=== PATIENT | female | born 1985 | race American Indian/Alaskan Native ===

== ENCOUNTER 2020-06-21 01:24 | Emergency (ER) | payer MEDICAID, SELFPAY ==
[2020-06-21] MEDS ORDERED: cloNIDine 0.1 MG Tab PO ONE (01:42)
--- NOTE | 2020-06-21 01:53 | EDM.PDOC ---
ED HPI GENERAL MEDICAL PROBLEM - General Chief Complaint: General Stated Complaint: MEDICAL VIA [facility] Time Seen by Provider: 06/21/20 01:51 Source of Information: Reports: Patient, Police, RN History Limitations: Reports: Other (limited old records available) - History of Present Illness INITIAL COMMENTS - FREE TEXT/NARRATIVE: 35 yo NA female from [place] is brought into the ER by police from [place] for evaluation of HTN. BP quite high in [facility]. Has not taken any of her meds for about a month. Is withdrawing from Heroin. Has some mild nausea and feels tingly. No CP or SOB. Was using meth as well before going to [facility]. Onset: Gradual Onset Date: 06/19/20 Duration: Day(s):, Constant Location: Reports: Generalized Quality: Reports: Other (no pain) Severity: Mild Improves with: Reports: None Worsens with: Reports: None Context: Reports: Other (withdrawal) Associated Symptoms: Reports: Nausea/Vomiting. 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 (see below) (none) denies Pain Score (Numeric/FACES): 0 - Related Data Allergies Allergy/AdvReac Type Severity Reaction Status Date / Time amoxicillin [Amoxicillin] Allergy Anaphylactic Verified 06/21/20 01:31 Shock cefaclor [From Ceclor] Allergy Anaphylactic Verified 06/21/20 01:31 Shock Home Meds: Home Meds amLODIPine Besylate [Amlodipine Besylate] 10 mg PO DAILY 06/21/20 [History] atenoloL [Atenolol] 1 tab PO DAILY 06/21/20 [History] Past Medical History HEENT History: Reports: Impaired Vision Cardiovascular History: Reports: Hypertension Respiratory History: Reports: Asthma DOOR FITTER History: Reports: , Spontaneous Musculoskeletal History: Reports: Fracture Other Musculoskeletal History: FX arm Psychiatric History: Reports: Anxiety, Depression, PTSD - Infectious Disease History Infectious Disease History: Reports: Chicken Pox - Past Surgical History Cardiovascular Surgical History: Reports: None Female Surgical History: Reports: Section Other Female Surgeries/Procedures: c section x5 Social & Family History - Tobacco Use Smoking Status *Q: Current Every Day Smoker Years of Tobacco use: 21 Packs/Tins Daily: 0.5 Used Tobacco, but Quit: No Second Hand Smoke Exposure: No - Caffeine Use Caffeine Use: Reports: Coffee - Recreational Drug Use Recreational Drug Use: Yes Drug Use in Last 12 Months: Yes Recreational Drug Type: Reports: Fentanyl, Heroin, Methamphetamine Recreational Drug Use Frequency: Socially ED ROS GENERAL - Review of Systems Review Of Systems: See Below Constitutional: Reports: No Symptoms HEENT: Reports: No Symptoms Respiratory: Reports: No Symptoms Cardiovascular: Reports: No Symptoms Endocrine: Reports: No Symptoms GI/Abdominal: Reports: Nausea, Vomiting. Denies: Abdominal Pain, Bloody Stool, Constipation, Diarrhea, Distension, Flatus, Hematemesis, Hematochezia, Melena : Reports: No Symptoms Musculoskeletal: Reports: No Symptoms Skin: Reports: No Symptoms Neurological: Reports: No Symptoms ED EXAM, GENERAL - Physical Exam Exam: See Below Exam Limited By: No Limitations General Appearance: Alert, WD/WN, No Apparent Distress Eye Exam: Bilateral Eye: PERRL Ears: Normal External Exam, Normal Canal, Hearing Grossly Normal Ear Exam: Bilateral Ear: Auricle Normal, Canal Normal Nose: Normal Inspection, No Blood Throat/Mouth: Normal Inspection, Normal Lips, Normal Oropharynx, Normal Voice, No Airway Compromise Head: Atraumatic, Normocephalic Neck: Normal Inspection Respiratory/Chest: No Respiratory Distress, Lungs Clear, Normal Breath Sounds, No Accessory Muscle Use Cardiovascular: Regular Rate, Rhythm, No Edema GI/Abdominal: Normal Bowel Sounds, Soft, Non-Tender, No Distention Back Exam: Normal Inspection Extremities: Normal Inspection, Normal Range of Motion, Non-Tender, No Pedal Edema Neurological: Alert, Oriented, CN II-XII Intact, Normal Cognition, No Motor/Sensory Deficits Psychiatric: Normal Affect, Normal Mood Skin Exam: Warm, Dry, Intact, Normal Color, No Rash Course - Vital Signs Last Recorded V/S: Last Vital Signs Temp 35.5 C L 06/21/20 01:46 Pulse 68 06/21/20 01:46 Resp 16 06/21/20 01:46 BP 167/109 H 06/21/20 01:58 Pulse Ox 100 06/21/20 01:46 - Orders/Labs/Meds Orders: Active Orders 24 hr Category Date Time Status Cardiac Monitoring [RC] .As Directed Care 06/21/20 01:50 Active Labs: Laboratory Tests 06/21/20 06/21/20 06/21/20 Range/Units 02:00 02:00 02:00 WBC 10.0 (4.5-11.0) K/uL RBC 4.37 (3.30-5.50) M/uL Hgb 11.1 L (12.0-15.0) g/dL Hct 34.8 L (36.0-48.0) % MCV 80 (80-98) fL MCH 25 L (27-31) pg MCHC 32 (32-36) % Plt Count 317 (150-400) K/uL Sodium 141 (140-148) mmol/L Potassium 3.1 L (3.6-5.2) mmol/L Chloride 104 (100-108) mmol/L Carbon Dioxide 28 (21-32) mmol/L Anion Gap 12.1 (5.0-14.0) mmol/L BUN 7 (7-18) mg/dL Creatinine 0.8 (0.6-1.0) mg/dL Est Cr Clr Drug Dosing 86.37 mL/min Estimated GFR (MDRD) > 60 (>60) Glucose 101 (74-106) mg/dL Calcium 8.3 L (8.5-10.1) mg/dL Troponin I < 0.017 (0.000-0.056) ng/mL TSH, Ultra Sensitive 0.415 (0.358-3.740) uIU/mL Meds: Medications Discontinued Medications Generic Name Dose Route Start Last Admin Trade Name Freq PRN Reason Stop Dose Admin Clonidine HCl 0.1 mg 06/21/20 01:42 06/21/20 01:58 Catapres PO 06/21/20 01:43 0.1 mg ONETIME ONE Administration Ondansetron HCl 4 mg 06/21/20 02:02 06/21/20 02:14 Zofran Odt PO 06/21/20 02:03 4 mg ONETIME ONE Administration Potassium Chloride 40 meq 06/21/20 02:34 06/21/20 02:40 Potassium Chloride PO 06/21/20 02:35 40 meq ONETIME ONE Administration Departure - Departure Time of Disposition: 03:00 Disposition: Home, Self-Care 01 Condition: Fair Clinical Impression: Medical non-compliance, Nausea Drug withdrawal Qualifiers: Substance type: opioid Qualified Code(s): F11.23 - Opioid dependence with withdrawal - Discharge Information *PRESCRIPTION DRUG MONITORING PROGRAM REVIEWED*: Not Applicable *COPY OF PRESCRIPTION DRUG MONITORING REPORT IN PATIENT HENRI: Not Applicable Referrals: PCP,None [Primary Care Provider] - Forms: ED Department Discharge Additional Instructions: Take clonidine 0.1 mg every 12 hrs for BP control. Take Zofran every 6 hrs for nausea control. Take potassium as directed until gone. Recheck as needed. Sepsis Event Note (ED) - Evaluation Sepsis Screening Result: No Definite Risk - Focused Exam Vital Signs: Vital Signs Temp Pulse Resp BP BP Pulse Ox 06/21/20 01:58 167/109 H 06/21/20 01:46 35.5 C L 68 16 192/114 H 100 - My Orders Last 24 Hours: My Active Orders 06/21/20 01:50 Cardiac Monitoring [RC] .As Directed - Assessment/Plan Last 24 Hours: My Active Orders 06/21/20 01:50 Cardiac Monitoring [RC] .As Directed
[2020-06-21] MEDS ORDERED: Ondansetron 4 MG Tab.DIS PO ONE (02:02)
[2020-06-21] MEDS ORDERED: Potassium Chloride 10 MEQ Cap.ER PO ONE (02:34)
== END 2020-06-21 03:06 | disposition home or self-care (01) ==
LOC: JP.ED 01:24
DX: F11.23 Opioid dependence with withdrawal (principal); R11.2 Nausea with vomiting, unspecified; Z91.14 Patient's other noncompliance with medication regimen; I10 Essential (primary) hypertension; J45.909 Unspecified asthma, uncomplicated; F17.210 Nicotine dependence, cigarettes, uncomplicated; Z88.1 Allergy status to other antibiotic agents; Z79.899 Other long term (current) drug therapy
CPT/HCPCS: 36415; 80048; 84443; 84484; 85027; 99284; A9270; 99283